=== PATIENT | male | born 1930 | race Caucasian/White ===

== ENCOUNTER 2016-04-18 14:03 | Inpatient (IN) ==
[2016-04-18] MEDS ORDERED: 0.9 % Sodium Chloride 1,000 ML IVC SCH ×2 (14:45→16:48)
[2016-04-18] MEDS ORDERED: Naloxone 0.4 MG/ML INJ IVP PRN (16:48)
--- NOTE | 2016-04-18 17:46 | Internal Med History&Physical ---
Date of Encounter: 04/18/16 Time of Encounter: 17:10 Assessment and Plan (1) Ileus Current visit: Yes Status: Acute He will be given IV fluids and clear liquids. Repeat assessment will be done tomorrow. (2) CKD (chronic kidney disease), stage IV Current visit: No Status: Acute Suspect acute worsening with underlying stage III disease. We will give IV fluids and recheck labs in a.m. (3) Paroxysmal a-fib Current visit: No Status: Chronic Continue Coumadin and monitor pro time (4) Hypertension Current visit: No Status: Chronic We will hold blood pressure medicine since he is borderline hypotensive Qualifiers: Hypertension type: essential hypertension Qualified Code(s): I10 - Essential (primary) hypertension (5) Vitamin D deficiency Current visit: Yes Status: Acute Vitamin D level was 15 on 03/22/2016. We will heart vitamin D and calcium supplement when ileus has improved. Internal Medicine - H&P: HPI Chief complaint: Vomiting and diarrhea, weakness Admitted From: Home Plans for Post Hospital Care: Home History of present illness: Mr. Boggs is a 85 year old male who was directed by his primary care provider Dr. Tigre Wolf to come to emergency room after labs and x-rays done earlier in the day showed significant abnormalities present. He was evaluated in ER with findings of acute on chronic renal failure, metabolic acidosis, and possible ileus. He was admitted to [facility] floor for ongoing care needs. He states he has had nausea vomiting diarrhea for the past week with 1-2 episodes of vomiting and diarrhea daily. He denies melena hematochezia or hematemesis. 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 He denies disorders of his liver or exocrine pancreas. He has had cholecystectomy in 2010. He has GERD. Past Med Surg Social Fam HX - Past Medical History Medical history: atrial fibrillation, COPD, coronary artery disease, diabetes, GERD, hypertension, myocardial infarction, renal disease Psychiatric history: no psych history - Past Surgical History Surgical History: appendectomy, cholecystectomy, coronary bypass (CABG), herniorrhaphy, other (volvulus reduction and pexy 10/2015), pacemaker - Social History Smoking Status: Former smoker Smokeless Tobacco Status: No Alcohol use: none Drug use: none - Family History Father Living Status: Hx Family Cardiac Disorders: Yes (unspecified) Daughter Living Status: Still Living Hx Family Cardiac Disorders: Yes (hypertension) Hx Family GI Disorders: Yes (IBS, Celiac disease, gallbladder) Mother Adopted: No Living Status: Hx Family Cardiac Disorders: Yes Hx Family Neurologic Disorders: Yes (Alzheimer) Internal Medicine - H&P: Meds Albuterol Sulfate [Albuterol Inhaler] 2 puff IH Q6HR PRN 01/20/15 [History] Aspirin [Adult Low Dose Aspirin EC] 81 mg PO DAILY 01/20/15 [History] Magnesium Oxide [Mgo] 400 mg PO BID 01/20/15 [History] Tamsulosin [Flomax] 0.4 mg PO DAILY 01/20/15 [History] Warfarin [Coumadin] 4 mg PO MOWEFRSA 01/20/15 [History] Budesonide/Formoterol 160/4.5 [Symbicort 160/4.5] 2 puff IH BIDR 06/13/15 [ History] Calcitriol 0.25 mcg PO DAILY 06/13/15 [History] Sodium Bicarbonate 650 mg PO BID 06/13/15 [History] Vit A/C/E AC/Znox/Cupric Oxide [Eye Vitamin-Minerals Tablet] 1 tab PO BID [History] Carboxymethylcellulose Sodium [Refresh Tears] 1 drop BOTH EYES QID 11/13/15 [ History] Fluticasone Propionate Nasal [Flonase] 50 mcg NS DAILY 11/13/15 [History] Losartan [Cozaar] 25 mg PO DAILY 11/13/15 [History] Docusate [Colace] 100 mg PO BID PRN #30 capsule 11/17/15 [Rx] Omeprazole [PriLOSEC] 40 mg PO DAILY PRN #30 capsule. 11/17/15 [Rx] Furosemide [Lasix] 20 mg PO DAILY 03/07/16 [History] Warfarin [Coumadin] 2 mg PO SUTUTH 03/07/16 [History] Allergies cephalexin [From Keflex] Allergy (Verified 11/12/15 12:36) Vomiting All Systems PM: A 10-system review of systems was performed and is negative for pertinent findings except as documented above in the HPI. Review of systems: Gen.: He states his weight has been stable past few months until the last week when he has lost several pounds due to the vomiting and diarrhea. Cardiovascular: He has history of hypertension and paroxysmal atrial fibrillation. He has had a pacemaker placed several years ago. 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 He denies heart failure DVT or pulmonary embolus. He has not had a stress test or heart catheter since the CABG surgery. Respiratory: He quit smoking approximately 50 years ago. He does use inhalers but is uncertain of the diagnosis. 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 He is being treated for BPH. He denies other kidney or bladder disorders. Neurologic: He denies large distribution strokes or seizures. Endocrine: He was diagnosed with DM 2 approximately 40 years ago but states it is diet-controlled. He denies thyroid disease or hyperlipidemia Hematology/oncology: He has history of anemia and has had skin cancer but denies internal malignancies or other blood disorders Psychiatric: He denies anxiety depression or other mental health issues [place] skeletal: He denies arthritis gout other bone joint or muscle disorders. He has had a shallow draining ulcer on his right leg for several weeks. - Constitutional Vitals: Temp Pulse Resp BP Pulse Ox 97.7 F 92 18 113/68 97 04/18/16 15:45 04/18/16 15:45 04/18/16 15:45 04/18/16 15:45 04/18/16 15:45 Exam: Gen.: He is a well-developed lean male who appears in no severe distress HEENT: Head is atraumatic and normocephalic. Eyes: EOMI. There is no scleral icterus. Mouth: Mucosa is moist. Neck: Supple and nontender. There is no thyromegaly or adenopathy noted. Heart: Regular without murmurs gallops or ectopics. Lungs: He has diminished breath sounds diffusely. No wheezes or crackles are heard. Abdomen: Soft and nontender. No masses or guarding are noted.. Extremities: He has a shallow ulcer approximate 3 cm diameter maximal dimension on the anterolateral lower leg. He has 1+ edema of the dorsum of the feet bilaterally. His feet are cool to touch. 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 Neurologic: Mental status: He is talkative and a good historian. Cranial nerves : Smile is symmetric. Forehead wrinkles bilaterally. Tongue protrudes midline. EOMI. Motor: There is no pronator drift. Cerebellar: Finger to nose intact bilaterally. Skin: Warm and dry. He has a shallow ulcers described above with mild surrounding erythema on the right leg.
[2016-04-18] MEDS: Artificial Tears SOLN 15 ML BOTTLE BOTH EYES SCH ×2 (17:50→23:29)
[2016-04-18] MEDS ORDERED: *HR* Warfarin 2 MG TABLET PO SCH (18:00)
[2016-04-18] MEDS: Budesonide/Formoterol 160/4.5 MDI IH SCH ×2 (22:10→22:17)
[2016-04-18] MEDS: Magnesium Oxide 400 MG TABLET PO SCH (23:29)
[2016-04-18] MEDS: (Vit A/C/E Ac/Znox/Cupric Oxide [Eye Vitamin-Minerals) PO SCH (23:30)
[2016-04-19 06:57] LABS: Basophils % 0.2 %; Eosinophils % 0.3 %; Hematocrit 31.1 % (37.5-50.1); Hemoglobin 10.4 g/dL (12.9-16.9); Immature Granulocytes % 0.3 % (0-4); Lymphocytes # 0.8 K/mcL (0.6-4.6); Lymphocytes % 14.3 %; Mean Corpuscular HGB Conc 33.4 g/dL (31.6-35.5); Mean Corpuscular Volume 92.6 fL (83.0-100.0); Monocytes # 0.3 K/mcL (0.0-1.3); Monocytes % 5.8 %; Neutrophils # 4.6 K/mcL (1.6-8.9); Platelet Count 194 K/mcL (140-400); Red Blood Count 3.36 M/mcL (4.19-5.50); Red Cell Distribution Width 17.2 % (11.5-14.5); Segmented Neutrophils % 79.1 %
[2016-04-19 07:02] LABS: INR 1.8; Prothrombin Time 19.9 Seconds (9.4-12.1)
[2016-04-19 07:15] LABS: Albumin 2.8 g/dL (3.5-5.0); Bilirubin,Total 0.9 mg/dL (0.2-1.2); Calcium 7.8 mg/dL (8.6-10.8); Globulin 2.7 g/dL (2.4-3.5); Magnesium 1.5 mg/dL (1.6-2.6); Potassium 4.5 mEq/L (3.5-4.5); Total Protein 5.5 g/dL (6.0-8.3)
[2016-04-19] MEDS ORDERED: Furosemide 40 MG TABLET PO SCH (09:00)
[2016-04-19] MEDS: Budesonide/Formoterol 160/4.5 MDI IH SCH ×2 (09:08→22:10)
[2016-04-19] MEDS: Magnesium Oxide 400 MG TABLET PO SCH ×2 (09:53→20:25)
[2016-04-19] MEDS: Aspirin Enteric Coated 81 MG Tablet PO SCH (09:54)
[2016-04-19] MEDS: Artificial Tears SOLN 15 ML BOTTLE BOTH EYES SCH ×4 (10:02→20:58)
[2016-04-19] MEDS: (Vit A/C/E Ac/Znox/Cupric Oxide [Eye Vitamin-Minerals) PO SCH ×2 (10:02→20:25)
[2016-04-19] MEDS: Fluticasone Propionate Nasal 50 MCG/SPRAY BOTTLE NS SCH (10:02)
--- NOTE | 2016-04-19 10:41 | Internal Med Progress Note ---
Date of Encounter: 04/19/16 Time of Encounter: 10:30 - Assessment and plan (1) Ileus Current Visit: Yes Status: Acute Assessment and plan: April 19. Continue IV fluids and clear liquids. (2) CKD (chronic kidney disease), stage IV Current Visit: No Status: Acute Assessment and plan: April 19. Continue IV fluids and recheck labs in a.m. (3) Paroxysmal a-fib Current Visit: No Status: Chronic Assessment and plan: April 19. Continue Coumadin and monitor pro time (4) Hypertension Current Visit: No Status: Chronic Assessment and plan: April 19. Observe off antihypertensive medication for now. Qualifiers: Hypertension type: essential hypertension Qualified Code(s): I10 - Essential (primary) hypertension (5) Vitamin D deficiency Current Visit: Yes Status: Acute Assessment and plan: April 19. Vitamin D level is pending. (6) Hypomagnesemia Current Visit: Yes Status: Acute Assessment and plan: April 19. Will continue magnesium oxide supplement. (7) Anemia Current Visit: No Status: Acute Assessment and plan: April 19. Anemia testing done 03/22/2016 showed no factor deficiency. We will monitor CBC. Qualifiers: Anemia type: unspecified type Qualified Code(s): D64.9 - Anemia, unspecified - Subjective Interval history: April 19. He has no new complaints. He states he has vomited once since yesterday afternoon. He has tolerated his clear liquid breakfast without feelings of nausea. He has no pain. - Constitutional Vitals: Temp Pulse Resp BP Pulse Ox 97.5 F L 81 18 143/67 99 04/19/16 07:21 04/19/16 07:21 04/19/16 09:12 04/19/16 07:21 04/19/16 09:12 Exam: He is resting comfortably in bed and appears in no acute distress. His abdomen is soft and nontender. Bowel sounds are present but slightly diminished. Heart is regular without murmurs gallops or ectopics. Lungs are clear anteriorly. Extremities show 1+ edema of the left leg and trace to 1+ edema of the right leg. Internal Medicine: Result - Labs CBC & Chem 7: 04/19/16 06:06 04/19/16 06:06 Labs: Short CBC 04/19/16 Range/Units 06:06 WBC 5.8 (4.3-11.1) K/mcL Hgb 10.4 L (12.9-16.9) g/dL Hct 31.1 L (37.5-50.1) % Plt Count 194 (140-400) K/mcL Neutrophils # 4.6 (1.6-8.9) K/mcL BMP 04/19/16 06:06 Sodium 147 H Potassium 4.5 Chloride 124 H Carbon Dioxide 9 L* BUN 83 H Creatinine 4.45 H Glucose 77 Calcium 7.8 L Liver Function 04/19/16 Range/Units 06:06 Total Bilirubin 0.9 (0.2-1.2) mg/dL AST 16 (5-34) Units/L ALT 13 (0-55) Units/L Alkaline Phosphatase 114 (38-126) Units/L Albumin 2.8 L (3.5-5.0) g/dL - ABG Interpretation ABG results: PT/INR, D-dimer PT 19.9 Seconds (9.4-12.1) H 04/19/16 06:06 Consult Discharge Plan - Plan Referrals: Tigre Wolf DO [Primary Care Provider] - 1 week
[2016-04-19] MEDS ORDERED: Ondansetron 4 MG/2 ML VIAL IVP PRN (10:54)
[2016-04-19] MEDS ORDERED: *HR* Warfarin 2.5 MG TABLET PO SCH (18:00)
[2016-04-19] MEDS ORDERED: *HR* Warfarin 2 MG TABLET PO SCH (18:00)
[2016-04-19] MEDS ORDERED: *HR* Warfarin 1 MG TABLET PO SCH (18:00)
[2016-04-19] MEDS ORDERED: Promethazine 12.5 MG in 0.9 % Sodium Chloride 50 ML IVPB PRN (19:27)
[2016-04-19] MEDS ORDERED: *HR* Promethazine 25 MG/ML VIAL IM PRN (20:14)
[2016-04-19] MEDS: *HR* Promethazine 25 MG/ML VIAL IVP PRN (20:40)
[2016-04-20] MEDS: *HR* Promethazine 25 MG/ML VIAL IVP PRN ×2 (02:28→20:35)
[2016-04-20 06:32] LABS: Basophils % 0.1 %; Hemoglobin 10.6 g/dL (12.9-16.9); Immature Granulocytes % 0.3 % (0-4); Lymphocytes # 0.7 K/mcL (0.6-4.6); Lymphocytes % 7.9 %; Mean Corpuscular HGB Conc 33.1 g/dL (31.6-35.5); Mean Corpuscular Hemoglobin 31.2 pg (28.0-33.3); Mean Corpuscular Volume 94.1 fL (83.0-100.0); Mean Platelet Volume 10.7 fL (9.4-12.4); Monocytes # 0.4 K/mcL (0.0-1.3); Monocytes % 4.5 %; Neutrophils # 7.8 K/mcL (1.6-8.9); Platelet Count 172 K/mcL (140-400); Red Cell Distribution Width 17.1 % (11.5-14.5); Segmented Neutrophils % 87.2 %
[2016-04-20 06:52] LABS: Calcium 7.5 mg/dL (8.6-10.8); Magnesium 1.7 mg/dL (1.6-2.6); Phosphorous 4.8 mg/dL (2.3-4.7); Potassium 4.3 mEq/L (3.5-4.5)
[2016-04-20] MEDS ORDERED: Furosemide 20 MG TABLET PO SCH (09:00)
[2016-04-20] MEDS ORDERED: (Vit A/C/E Ac/Znox/Cupric Oxide [Eye Vitamin-Minerals) PO SCH (09:00)
[2016-04-20] MEDS: Budesonide/Formoterol 160/4.5 MDI IH SCH (10:02)
[2016-04-20] MEDS: Artificial Tears SOLN 15 ML BOTTLE BOTH EYES SCH (13:58)
[2016-04-20] MEDS: Fluticasone Propionate Nasal 50 MCG/SPRAY BOTTLE NS SCH (13:59)
[2016-04-20] MEDS: Magnesium Oxide 400 MG TABLET PO SCH (13:59)
[2016-04-20] MEDS: Aspirin Enteric Coated 81 MG Tablet PO SCH (13:59)
--- NOTE | 2016-04-20 16:12 | Discharge Summary ---
Date of Encounter: 04/20/16 Time of Encounter: 15:45 - Discharge Diagnosis (1) Ileus Priority: Primary Status: Acute (2) CKD (chronic kidney disease), stage IV Priority: Secondary Status: Acute (3) Paroxysmal a-fib Priority: Secondary Status: Chronic (4) Hypertension Priority: Secondary Status: Chronic Qualifiers: Hypertension type: essential hypertension Qualified Code(s): I10 - Essential (primary) hypertension (5) Vitamin D deficiency Priority: Secondary Status: Acute (6) Hypomagnesemia Priority: Secondary Status: Acute (7) Anemia Priority: Secondary Status: Acute Qualifiers: Anemia type: unspecified type Qualified Code(s): D64.9 - Anemia, unspecified - Discharge Medications Home Medications: Albuterol Sulfate [Albuterol Inhaler] 2 puff IH Q6HR PRN 01/20/15 [History] Aspirin [Adult Low Dose Aspirin EC] 81 mg PO DAILY 01/20/15 [History] Magnesium Oxide [Mgo] 400 mg PO BID 01/20/15 [History] Tamsulosin [Flomax] 0.4 mg PO DAILY 01/20/15 [History] Warfarin [Coumadin] 4 mg PO MOWEFRSA 01/20/15 [History] Budesonide/Formoterol 160/4.5 [Symbicort 160/4.5] 2 puff IH BIDR 06/13/15 [ History] Calcitriol 0.25 mcg PO DAILY 06/13/15 [History] Sodium Bicarbonate 650 mg PO BID 06/13/15 [History] Vit A/C/E AC/Znox/Cupric Oxide [Eye Vitamin-Minerals Tablet] 1 tab PO BID [History] Carboxymethylcellulose Sodium [Refresh Tears] 1 drop BOTH EYES QID 11/13/15 [ History] Fluticasone Propionate Nasal [Flonase] 50 mcg NS DAILY 11/13/15 [History] Losartan [Cozaar] 25 mg PO DAILY 11/13/15 [History] Docusate [Colace] 100 mg PO BID PRN #30 capsule 11/17/15 [Rx] Omeprazole [PriLOSEC] 40 mg PO DAILY PRN #30 capsule. 11/17/15 [Rx] Furosemide [Lasix] 20 mg PO DAILY 03/07/16 [History] Warfarin [Coumadin] 2 mg PO SUTUTH 03/07/16 [History] Allergies/Adverse Reactions: Allergies cephalexin [From Keflex] Allergy (Verified 11/12/15 12:36) Vomiting Procedures/tests Complete & Pending: Procedures Performed prior 72 hours Category Date Time Status CT abd pelvis wo no iv no oral [CT] Routine Cat Scan 04/19/16 16:06 Completed Date of admission: 04/18/16 16:29 Primary care physician: Tigre Wolf, Consults: 04/18/16 18:49 Consult to Nutrition [CONS] Routine Comment: Consulting Provider: NUTRITION Reason for Dietary Consult: MST Score Consult to Bookkeeping Manager [CONS] Routine Reason for SW Consult: discharge planning 04/19/16 15:14 Consult to Occupational Therapy [CONS] Routine Comment: Evaluate, develop and implement POC Consult to Physical Therapy [CONS] Routine Comment: Evaluate, develop and implement POC - Patient Status Disposition: Transfer Short-Term Hosp - Discharge Instructions Forms: ED Satisfaction Letter Hospital course: Mr. Boggs is a 85 year old male who was directed by his primary care provider Dr. Tigre Wolf to come to emergency room after labs and x-rays done earlier in the day showed significant abnormalities present. He was evaluated in ER with findings of acute on chronic renal failure, metabolic acidosis, and possible ileus. [facility] floor for ongoing care needs. Initial orders were written by the emergency room physician. I saw him on April 18 and performed a history and physical. He was given IV fluids and clear liquid diet. Vomiting episodes gradually increased in frequency during the first 24 hours. The night of April 19 an NG tube was inserted and placed to low intermittent suction. Drainage appeared to be dark brown with possible blood flecks. Abdominal/pelvic CT was done to further evaluate. CT showed gastric distention and dilated loops of small bowel without obvious volvulus area. Because of the patient's previous volvulus requiring surgical intervention I felt it was best to have him be seen again by surgery service. He requested to go to [facility] but the request was denied by [facility] because he had most recently been to [facility]. I spoke with the family and they were agreed he go to [facility]. I spoke with [facility] and he was accepted for transfer the afternoon of April 20. - Time Spent with Patient Total time spent providing and/or coordinating discharge services: - Constitutional Vitals: Temp Pulse Resp BP Pulse Ox 98.2 F 104 18 118/70 98 04/20/16 15:20 04/20/16 15:20 04/20/16 15:20 04/20/16 15:20 04/20/16 15:20
[2016-04-20 18:49] VITALS: BP 109/73
== END 2016-04-20 22:02 | disposition short-term general hospital (02) | DRG 389 ==
LOC: INPPIK 14:03 → EMEROOPIK 14:03 → INPPIK 15:38
PROVIDERS: ADMIT Internal Medicine; ATTEND Internal Medicine

== ENCOUNTER 2016-09-14 07:26 | Inpatient (IN) ==
[2016-09-14] MEDS ORDERED: Ipratropium/Albuterol Neb 3 ML IH ONE (07:34)
[2016-09-14] MEDS ORDERED: Levofloxacin 750 MG/150 ML 750 MG/150 ML BAG IVPB ONE (07:34)
[2016-09-14] MEDS ORDERED: methylPREDNISolone 125 MG/2 ML VIAL IVP ONE (07:34)
--- NOTE | 2016-09-14 07:43 | Emergency Department Note ---
Disposition Clinical Impression: Community acquired pneumonia, CKD (chronic kidney disease), stage IV, Hypoxia Leukopenia Qualifiers: Leukopenia type: unspecified Qualified Code(s): D72.819 - Decreased white blood cell count, unspecified Disposition: Admitted As Inpatient Condition: Fair Referrals: Tigre Wolf DO [Primary Care Provider] - Forms: ED Satisfaction Letter SOB HPI - General Chief Complaint: ED General Medical Stated Complaint: flu like sxs, cough Time Seen by Provider: 09/14/16 07:30 Source: patient, EMS Mode of arrival: EMS Limitations: no limitations Nursing Notes Reviewed: Yes Vital Signs Reviewed: Yes - History of Present Illness Patient presents to the emergency department for evaluation of cough wheezing and shortness of breath. He states that the symptoms been present for the past 3 days. He denies fever. He states he has had a cough productive of clear sputum. He has also had several episodes of vomiting though by his description this appears to be posttussive in etiology. States he has had some minimal loose stool. He denies chest pain. He denies hemoptysis. He states he has chronic lower extremity edema that today he has some increased edema from his baseline. He denies abdominal pain. He denies recent antibiotic use or steroid use. Pt Subjective Complaint: shortness of breath, cough Onset (ago): day(s) (3) Severity: moderate, severe Consistency/Duration: gradually worsening Improves with: nothing Worsens with: exertion, coughing Known history of: COPD, congestive heart failure Associated symptoms: Reports: cough, wheezing, sputum production, nausea/ vomiting. Denies: chest pain, fever, orthopnea, lower extremity pain, polyuria , polydipsia, parasthesias, palpitations, hemoptysis, diaphoresis, syncope, abdominal pain, rash Cough Description: Voluntary, Productive, Hacking Cough Frequency: Intermittent Sputum production: Yes Sputum Amount: Small Sputum Color: Clear - Related Data Home oxygen amount: none Home Medications Medication Instructions Recorded Confirmed Aspirin [Adult Low Dose Aspirin EC] 81 mg PO DAILY 01/20/15 09/14/16 Magnesium Oxide [Mgo] 400 mg PO BID 01/20/15 09/14/16 Tamsulosin [Flomax] 0.4 mg PO DAILY 01/20/15 09/14/16 Warfarin [Coumadin] 4 mg PO DAILY 01/20/15 09/14/16 Budesonide/Formoterol 160/4.5 2 puff IH BIDR 06/13/15 09/14/16 [Symbicort 160/4.5] Calcitriol 0.25 mcg PO DAILY 06/13/15 09/14/16 Sodium Bicarbonate 650 mg PO BID 06/13/15 09/14/16 Vit A/C/E AC/Znox/Cupric Oxide 1 tab PO BID 06/13/15 09/14/16 [Eye Vitamin-Minerals Tablet] Carboxymethylcellulose Sodium 1 drop BOTH EYES QID 11/13/15 09/14/16 [Refresh Tears] Fluticasone Propionate Nasal 50 mcg NS DAILY 11/13/15 09/14/16 [Flonase] Furosemide [Lasix] 20 mg PO DAILY 03/07/16 09/14/16 Warfarin [Coumadin] 6 mg PO TUSA 03/07/16 09/14/16 Ammonium Lactate 140 gm TP BID 09/14/16 09/14/16 Calcium Carbonate/Vitamin D3 1 each PO BID 09/14/16 09/14/16 [Calcium 600 + Vit D Tablet] Ergocalciferol (VITAMIN D2) 50,000 unit PO QWEEK 09/14/16 09/14/16 [Drisdol (50,000 Unit)] Ondansetron ODT [Zofran ODT] 4 mg SL Q8HR 09/14/16 09/14/16 Quetiapine Fumarate [SEROquel] 25 mg PO HS 09/14/16 09/14/16 Previous Rx's Medication Instructions Recorded Omeprazole [PriLOSEC] 40 mg PO DAILY PRN #30 capsule. 11/17/15 Allergies Allergy/AdvReac Type Severity Reaction Status Date / Time cephalexin [From Keflex] Allergy Vomiting Verified 11/12/15 12:36 promethazine [From Phenergan] AdvReac See Verified 09/14/16 07:29 Comments Constitutional: Denies: fever Eyes: Denies: eye discharge, vision change ENT ED: Reports: congestion. Denies: throat pain, dysphagia Cardiovascular: Reports: dyspnea on exertion, edema. Denies: chest pain, palpitations, orthopnea, syncope, paroxysmal nocturnal dyspnea Respiratory: Reports: cough, dyspnea, wheezes, sputum production. Denies: hemoptysis Gastrointestinal: Reports: nausea, vomiting, diarrhea. Denies: abdominal pain Genitourinary: Denies: urgency, dysuria Musculoskeletal: Denies: back pain, neck pain Integumentary: Denies: rash Neurological: Denies: headache, weakness, numbness, paresthesias Endocrine: Denies: fatigue Past Medical History - Past Medical History Medical history: Reports: atrial fibrillation, COPD, coronary artery disease, diabetes, GERD, hypertension, myocardial infarction, renal disease (Chronic renal failure) Surgical history: Reports: appendectomy, cholecystectomy, coronary bypass (CABG) , herniorrhaphy, other (volvulus reduction and pexy 10/2015), pacemaker Psychiatric history: Reports: no psych history - Social History Smoking Status: Former smoker Smokeless Tobacco Status: No Alcohol use: Reports: none Drug use: Reports: none Physical Exam - General Limitations: no limitations General appearance: alert - Head Head exam: atraumatic, normocephalic - Eye Eye exam: Present: normal appearance. Absent: scleral icterus, conjunctival injection - ENT ENT exam: normal oropharynx, mucous membranes moist, TM's normal bilaterally - Neck Neck exam: Present: normal inspection. Absent: meningismus - Respiratory Respiratory exam: Present: wheezes, prolonged expiratory phase. Absent: respiratory distress, accessory muscle use - Cardiovascular Cardiovascular exam: Present: regular rate, normal rhythm - Abdominal Exam Abdominal exam: Present: soft, Non-Tender, normal bowel sounds. Absent: mass, bruit, pulsatile mass - Extremities Exam Extremities exam: Present: normal capillary refill, pedal edema (No asymmetry or erythema). Absent: tenderness, calf tenderness - Expanded Lower Extremity Exam Neurovascular/Tendon exam: Present: normal capillary refill. Absent: pulse deficit - Neurological Exam Neurological exam: Present: alert, oriented X3 - Psychiatric Psychiatric exam: Present: normal affect, normal mood - Skin Skin exam: Present: warm, dry, intact, normal color. Absent: rash Course Course Narrative: 0800: Care turned over by Dr. Malik. Chart has been reviewed. We do have 2 transmitted EKGs from EMS. These both demonstrated a circular paced rhythm with a rate of 62 and 63. There are no acute ST or T-wave changes to indicate ischemia or infarction. This is on my interpretation. EKGs were performed at 7 :11 AM and 7:12 AM. The patient is resting comfortably with a heart rate of 107 , saturating at 96% on 2 L nasal cannula with a blood pressure 109/57. His respiratory rate is 16. All lab and imaging is pending at time of my arrival. 0940: After return of laboratory evaluation, care has been discussed with the patient and family. Patient states that he has known severe kidney disease but has never been on dialysis. He states he has understood that it may become an eventuality. His current creatinine and kidney function is at baseline in comparison to his previous laboratory. He will need continued inpatient care and a page has been placed to Dr. Ennis to coordinate inpatient care at this facility. Vital Signs Temperature 99.3 F 09/14/16 07:30 Pulse Rate 72 09/14/16 07:30 Respiratory Rate 28 09/14/16 07:30 Blood Pressure 118/61 09/14/16 07:30 O2 Sat by Pulse Oximetry 88 09/14/16 07:30 Temperature 99.3 F 09/14/16 07:30 Pulse Rate 97 09/14/16 10:00 Respiratory Rate 24 09/14/16 10:00 Blood Pressure 120/61 09/14/16 10:00 O2 Sat by Pulse Oximetry 100 09/14/16 10:00 Oxygen Delivery Oxygen Delivery Nasal Cannula Shortness of Breath/Dyspnea - Differential Diagnosis Likely: acute exacerbation of chronic obstructive airways disease, congestive heart failure, pneumonia, asthma with exacerbation - Medical Records Medical records reviewed: Yes I reviewed the patient's medical records. - Lab Data Lab results reviewed: Yes I reviewed the patient's lab results. Result diagrams: 09/14/16 08:10 09/14/16 08:10 Lab Results 09/14/16 09/14/16 09/14/16 Range/Units 07:34 08:10 08:10 WBC 1.2 L (4.3-11.1) K/mcL RBC 3.02 L (4.19-5.50) M/mcL Hgb 9.7 L (12.9-16.9) g/dL Hct 30.9 L (37.5-50.1) % MCV 102.3 H D (83.0-100.0) fL MCH 32.1 (28.0-33.3) pg MCHC 31.4 L (31.6-35.5) g/dL RDW 16.3 H (11.5-14.5) % Plt Count 163 (140-400) K/mcL MPV 10.1 (9.4-12.4) fL Immature Gran % 0.0 (0-4) % Seg Neutrophils % 75.2 % Lymphocytes % 22.3 % Monocytes % 1.7 % Eosinophils % 0.8 % Basophils % 0.0 % Neutrophils # 0.9 L (1.6-8.9) K/mcL Lymphocytes # 0.3 L (0.6-4.6) K/mcL Monocytes # 0.0 (0.0-1.3) K/mcL Eosinophils # 0.0 (0.0-0.6) K/mcL Basophils # 0.0 (0.0-0.2) K/mcL Platelet Estimate Normal (Normal) PT (9.4-12.1) Seconds INR APTT (26.0-36.0) Seconds ABG pH 7.33 (7.32-7.45) pH Units ABG pCO2 29 L (35-45) mmHg ABG pO2 148 H (85-104) mmHg ABG HCO3 15.0 L (21-27) mEQ/L ABG Total CO2 15.9 L (20-26) mEq/L ABG O2 Saturation 99 H (95-98) % ABG Base Excess -10.9 L (-2.0 to 3.0) mEq/L VBG Lactic Acid (0.5-2.2) mmol/L Liter Flow 8 L/MIN Blood Gas Modality neb.mask Inspired O2 45 % Sodium 146 H (136-145) mEq/L Potassium 4.5 (3.5-4.5) mEq/L Chloride 122 H (98-109) mEq/L Carbon Dioxide 11 L (19-29) mEq/L BUN 60 H (8-26) mg/dL Creatinine 3.22 H (0.72-1.25) mg/dL Est GFR ( Amer) 22 L (> 60) Est GFR (Non-Af Amer) 19 L (> 60) BUN/Creatinine Ratio 19 (6-26) Glucose 123 H (70-99) mg/dL Calculated Osmolality 320 H (280-300) Calcium 7.4 L (8.6-10.8) mg/dL Total Bilirubin 0.5 (0.2-1.2) mg/dL Direct Bilirubin 0.2 (0.0-0.5) mg/dL Indirect Bilirubin 0.3 (0.0-1.2) mg/dL AST 20 (5-34) Units/L ALT 17 (0-55) Units/L Alkaline Phosphatase 135 H (38-126) Units/L Creatine Kinase 72 (30-200) Units/L Troponin I (0-0.03) ng/mL B-Natriuretic Peptide (0-100) pg/mL Serum Total Protein 4.9 L (6.0-8.3) g/dL Albumin 2.4 L (3.5-5.0) g/dL Globulin 2.5 (2.4-3.5) g/dL Albumin/Globulin Ratio 1.0 L (1.1-2.2) 09/14/16 09/14/16 09/14/16 Range/Units 08:10 08:10 08:10 WBC (4.3-11.1) K/mcL RBC (4.19-5.50) M/mcL Hgb (12.9-16.9) g/dL Hct (37.5-50.1) % MCV (83.0-100.0) fL MCH (28.0-33.3) pg MCHC (31.6-35.5) g/dL RDW (11.5-14.5) % Plt Count (140-400) K/mcL MPV (9.4-12.4) fL Immature Gran % (0-4) % Seg Neutrophils % % Lymphocytes % % Monocytes % % Eosinophils % % Basophils % % Neutrophils # (1.6-8.9) K/mcL Lymphocytes # (0.6-4.6) K/mcL Monocytes # (0.0-1.3) K/mcL Eosinophils # (0.0-0.6) K/mcL Basophils # (0.0-0.2) K/mcL Platelet Estimate (Normal) PT (9.4-12.1) Seconds INR APTT (26.0-36.0) Seconds ABG pH (7.32-7.45) pH Units ABG pCO2 (35-45) mmHg ABG pO2 (85-104) mmHg ABG HCO3 (21-27) mEQ/L ABG Total CO2 (20-26) mEq/L ABG O2 Saturation (95-98) % ABG Base Excess (-2.0 to 3.0) mEq/L VBG Lactic Acid 2.8 H (0.5-2.2) mmol/L Liter Flow L/MIN Blood Gas Modality Inspired O2 % Sodium (136-145) mEq/L Potassium (3.5-4.5) mEq/L Chloride (98-109) mEq/L Carbon Dioxide (19-29) mEq/L BUN (8-26) mg/dL Creatinine (0.72-1.25) mg/dL Est GFR ( Amer) (> 60) Est GFR (Non-Af Amer) (> 60) BUN/Creatinine Ratio (6-26) Glucose (70-99) mg/dL Calculated Osmolality (280-300) Calcium (8.6-10.8) mg/dL Total Bilirubin (0.2-1.2) mg/dL Direct Bilirubin (0.0-0.5) mg/dL Indirect Bilirubin (0.0-1.2) mg/dL AST (5-34) Units/L ALT (0-55) Units/L Alkaline Phosphatase (38-126) Units/L Creatine Kinase (30-200) Units/L Troponin I 0.03 (0-0.03) ng/mL B-Natriuretic Peptide 499 H (0-100) pg/mL Serum Total Protein (6.0-8.3) g/dL Albumin (3.5-5.0) g/dL Globulin (2.4-3.5) g/dL Albumin/Globulin Ratio (1.1-2.2) 09/14/16 09/14/16 Range/Units 09:35 09:35 WBC (4.3-11.1) K/mcL RBC (4.19-5.50) M/mcL Hgb (12.9-16.9) g/dL Hct (37.5-50.1) % MCV (83.0-100.0) fL MCH (28.0-33.3) pg MCHC (31.6-35.5) g/dL RDW (11.5-14.5) % Plt Count (140-400) K/mcL MPV (9.4-12.4) fL Immature Gran % (0-4) % Seg Neutrophils % % Lymphocytes % % Monocytes % % Eosinophils % % Basophils % % Neutrophils # (1.6-8.9) K/mcL Lymphocytes # (0.6-4.6) K/mcL Monocytes # (0.0-1.3) K/mcL Eosinophils # (0.0-0.6) K/mcL Basophils # (0.0-0.2) K/mcL Platelet Estimate (Normal) PT 35.9 H (9.4-12.1) Seconds INR 3.2 APTT 34.3 (26.0-36.0) Seconds ABG pH (7.32-7.45) pH Units ABG pCO2 (35-45) mmHg ABG pO2 (85-104) mmHg ABG HCO3 (21-27) mEQ/L ABG Total CO2 (20-26) mEq/L ABG O2 Saturation (95-98) % ABG Base Excess (-2.0 to 3.0) mEq/L VBG Lactic Acid (0.5-2.2) mmol/L Liter Flow L/MIN Blood Gas Modality Inspired O2 % Sodium (136-145) mEq/L Potassium (3.5-4.5) mEq/L Chloride (98-109) mEq/L Carbon Dioxide (19-29) mEq/L BUN (8-26) mg/dL Creatinine (0.72-1.25) mg/dL Est GFR ( Amer) (> 60) Est GFR (Non-Af Amer) (> 60) BUN/Creatinine Ratio (6-26) Glucose (70-99) mg/dL Calculated Osmolality (280-300) Calcium (8.6-10.8) mg/dL Total Bilirubin (0.2-1.2) mg/dL Direct Bilirubin (0.0-0.5) mg/dL Indirect Bilirubin (0.0-1.2) mg/dL AST (5-34) Units/L ALT (0-55) Units/L Alkaline Phosphatase (38-126) Units/L Creatine Kinase (30-200) Units/L Troponin I (0-0.03) ng/mL B-Natriuretic Peptide (0-100) pg/mL Serum Total Protein (6.0-8.3) g/dL Albumin (3.5-5.0) g/dL Globulin (2.4-3.5) g/dL Albumin/Globulin Ratio (1.1-2.2) - Radiology Data Radiology results reviewed: Yes I reviewed the patient's radiology results. Single view Chest x-ray is performed. This shows some hyperexpansion consistent with COPD. Patient has patchy increased interstitial markings in the right base that is concerning for pneumonia. I do not see evidence for effusion, pneumothorax or cardiomegaly. I believe pulmonary edema to be less likely. This is on my interpretation. Impressions Chest X-Ray 09/14/16 07:34 IMPRESSION: Patchy bibasilar airspace disease. D/ / Daron Morgan MD / Daron Morgan MD Interpreting Provider: Daron Morgan MD - EKG Data EKG attestation: Yes I reviewed and interpreted this EKG. EKG shows normal: Reports: sinus rhythm (Paced rhythm with rate of 63.) Interpretation: Reports: no acute changes, other (Ventricularly paced rhythm, rate of 63, axis of 136, TX interval 190 and QT/QTc 460/467.) S.B.A.R. - S.B.A.R. Transition of Care: Care transferred to Dr. Hernandez pending laboratory and radiographic evaluation. Situation: Demographics Background: Presenting Complaint, Relevant PMH, Meds, & Allergies Assessment: Vital Signs, Exam Concerns S.B.A.R. Report Given to: Dr. David Gan.[email or web address] Repor Time: 07:00
[2016-09-14 08:14] LABS: ABG PH 7.33 pH Units (7.32-7.45)
[2016-09-14 08:15] LABS: ABG Base Excess -10.9 mEq/L (-2.0 to 3.0); ABG Oxygen Saturation 99 % (95-98); ABG PCO2 29 mmHg (35-45); ABG PO2 148 mmHg (85-104); ABG TCO2 15.9 mEq/L (20-26)
[2016-09-14 08:16] LABS: Blood Gas FiO2 45 %; Blood Gas Liter Flow 8 L/MIN
[2016-09-14 08:26] LABS: Eosinophils % 0.8 %; Hematocrit 30.9 % (37.5-50.1); Hemoglobin 9.7 g/dL (12.9-16.9); Lymphocytes # 0.3 K/mcL (0.6-4.6); Lymphocytes % 22.3 %; Mean Corpuscular HGB Conc 31.4 g/dL (31.6-35.5); Mean Corpuscular Hemoglobin 32.1 pg (28.0-33.3); Mean Corpuscular Volume 102.3 fL (83.0-100.0); Mean Platelet Volume 10.1 fL (9.4-12.4); Monocytes % 1.7 %; Neutrophils # 0.9 K/mcL (1.6-8.9); Platelet Count 163 K/mcL (140-400); Red Blood Count 3.02 M/mcL (4.19-5.50); Red Cell Distribution Width 16.3 % (11.5-14.5); Segmented Neutrophils % 75.2 %
[2016-09-14] MEDS ORDERED: Acetaminophen 325 MG TABLET PO ONE (08:49)
[2016-09-14 08:54] LABS: Platelet Estimate Normal (Normal)
[2016-09-14 09:19] LABS: Albumin 2.4 g/dL (3.5-5.0); Bilirubin,Direct 0.2 mg/dL (0.0-0.5); Bilirubin,Indirect 0.3 mg/dL (0.0-1.2); Bilirubin,Total 0.5 mg/dL (0.2-1.2); Calcium 7.4 mg/dL (8.6-10.8); Globulin 2.5 g/dL (2.4-3.5); Potassium 4.5 mEq/L (3.5-4.5); Total Protein 4.9 g/dL (6.0-8.3)
[2016-09-14 09:50] LABS: INR 3.2; Prothrombin Time 35.9 Seconds (9.4-12.1)
[2016-09-14] MEDS ORDERED: *HR* Warfarin 2 MG TABLET PO SCH (10:21)
[2016-09-14] MEDS ORDERED: Acetaminophen 325 MG TABLET PO PRN (10:21)
[2016-09-14] MEDS ORDERED: Naloxone 0.4 MG/ML INJ IVP PRN (10:21)
[2016-09-14] MEDS ORDERED: Albuterol 2.5 MG/3 ML NEBULIZER IH PRN (10:21)
[2016-09-14] MEDS ORDERED: Ondansetron 4 MG/2 ML VIAL IVP PRN (10:21)
[2016-09-14] MEDS ORDERED: MOM Conc 10 ML UD.LIQ PO PRN (10:21)
[2016-09-14] MEDS: 0.9 % Sodium Chloride 1,000 ML IVC SCH ×2 (10:49→20:33)
[2016-09-14] MEDS: Ipratropium/Albuterol Neb 3 ML IH SCH ×3 (10:55→22:08)
[2016-09-14] MEDS: Artificial Tears SOLN 15 ML BOTTLE BOTH EYES SCH ×3 (13:29→20:36)
[2016-09-14] MEDS ORDERED: Dextrose Gel 15 GM PO PRN ×2 (18:29)
[2016-09-14] MEDS ORDERED: D5% in Water 1,000 ML IVC PRN (18:29)
[2016-09-14] MEDS ORDERED: *HR* Dextrose 50 % in Water (Syg) 50 ML SYRINGE IVP PRN (18:29)
--- NOTE | 2016-09-14 18:40 | Internal Med History&Physical ---
Date of Encounter: 09/14/16 Time of Encounter: 18:30 Assessment and Plan (1) Community acquired pneumonia Current visit: Yes Status: Acute X-ray portable shows right lower lobe pneumonia, will continue Levaquin follow- up CBC with differential will admit him to [facility] floor because a combination of pneumonia plus leukopenia plus hypoxia posterior weakness. (2) Leukopenia Current visit: Yes Status: Acute His white count is 1.2 with follow-up CBC Qualifiers: Leukopenia type: unspecified Qualified Code(s): D72.819 - Decreased white blood cell count, unspecified (3) Hypoxia Current visit: Yes Status: Acute Continue oxygen supplementation is also on prednisone (4) Chronic atrial fibrillation Current visit: Yes Status: Chronic Follow-up daily PT/INRs, INR was 3.2 along working with dose adjustments (5) Bilateral lower extremity edema Current visit: Yes Status: Chronic We will give Lasix, if blood blisters a bigger and consider wraps, the feet elevated when not ambulating (6) COPD with exacerbation Current visit: Yes Status: Acute Hypoxia continue the prednisone. (7) General weakness Current visit: Yes Status: Acute Consult rehabilitation. (8) Macrocytic anemia Current visit: Yes Status: Chronic Obtain B12 and folate levels (9) DM2 (diabetes mellitus, type 2) Current visit: Yes Status: Acute Patient reports diet-controlled home with no sliding scale insulin and asked her twice year will follow-up a hemoglobin A1c Qualifiers: Diabetes mellitus complication status: with kidney complications Diabetes mellitus complication detail: with chronic kidney disease Diabetes mellitus residential insulin use: without residential use Chronic kidney disease stage: stage 4 (severe) Qualified Code(s): E11.22 - Type 2 diabetes mellitus with diabetic chronic kidney disease; N18.4 - Chronic kidney disease, stage 4 (severe ) Internal Medicine - H&P: HPI Chief complaint: Shortness of breath Admitted From: Home Plans for Post Hospital Care: Transfer Inp Rehab Fac History of present illness: Mr. Boggs is a 85 year old male risen to the emergency room with acute cough and shortness of breath couple hours this morning before he allowed his to call the squad. His legs and joints froze up and he can move them. Reports having some nausea vomiting and chills this morning. Denies any fever. He reports weakness and fatigue and coughing up some clear sputum. He was progressively getting short of breath. He denied a headache dizziness blood and urine or stool. He is hard of hearing. He is agitated today because he was not allowed to drive. He gave in detail his frustrations. Apparently had a mini stroke about [address] Wolf did not feel comfortable with him driving before he had further workup including MRI. I explained with a recent mini stroke that there is concern with him continue to drive because if he had a stroke while he is driving he could kill someone. His statement was that he had insurance. There is something he will have to continue working with Dr. Wolf on. He has a history of colonic polyps but he refuses to get a follow- up colonoscopy. His said he declined even doing a stool blood sample. He sees Dr. Mendoza for chronic kidney disease apparently his level for his on Lasix 20 mg twice a day. He has swelling in his ankles but they are unsure if she has congestive heart failure with his history of coronary artery disease. He like to go to rehabilitation [facility] after he is finished here with a goal of getting stronger drive again. He apparently has an arrhythmia and a pacemaker. Answers questions address his concerns. Past Med Surg Social Fam HX - Past Medical History Medical history: atrial fibrillation, CHF (Per ER documentation), COPD, coronary artery disease, diabetes, GERD, hypertension, myocardial infarction, renal disease (CKD4), other (Esophageal stricture, peripheral edema, colonic polyps,) Psychiatric history: no psych history - Past Surgical History Surgical History: appendectomy, cholecystectomy, coronary bypass (CABG) (3 vessels), herniorrhaphy, other (Large and small bowel surgery), pacemaker - Social History Smoking Status: Former smoker Smokeless Tobacco Status: No Alcohol use: none Drug use: other (One half to one cup of decaf coffee dailyBecause caffeine is a stimulant and makes one feel a boost of energy by tapping into ones reserve energy, it can lead to anxiety and panic attacks. When used routiely, it interferes with deep sleep, so the reserve energy isn't being replaced effectively which leads to tiredness, depression, higher risk of infection. I recommend patients gives up daily use.) Current living situation: Home Activity Level: Uses cane/walker - Family History Father Living Status: ([place]) Hx Family Cardiac Disorders: Yes (unspecified) Hx Family Respiratory Disorders: Yes (COPD) Hx Family Cancer: Yes (Prostate cancer) Daughter Living Status: Still Living Hx Family Cardiac Disorders: Yes (hypertension) Hx Family GI Disorders: Yes (IBS, Celiac disease, gallbladder) Mother Adopted: No Living Status: Hx Family Cardiac Disorders: Yes Hx Family Endocrine Disorder: Yes (Diabetes) Hx Family Neurologic Disorders: Yes (Alzheimer) Hx Family Psychosocial Disorders: Yes (Alzheimer's dementia) Internal Medicine - H&P: Meds Aspirin [Adult Low Dose Aspirin EC] 81 mg PO DAILY 01/20/15 [History] Magnesium Oxide [Mgo] 400 mg PO BID 01/20/15 [History] Tamsulosin [Flomax] 0.4 mg PO DAILY 01/20/15 [History] Warfarin [Coumadin] 4 mg PO DAILY 01/20/15 [History] Budesonide/Formoterol 160/4.5 [Symbicort 160/4.5] 2 puff IH BIDR 06/13/15 [ History] Calcitriol 0.25 mcg PO DAILY 06/13/15 [History] Sodium Bicarbonate 650 mg PO BID 06/13/15 [History] Vit A/C/E AC/Znox/Cupric Oxide [Eye Vitamin-Minerals Tablet] 1 tab PO BID [History] Carboxymethylcellulose Sodium [Refresh Tears] 1 drop BOTH EYES QID 11/13/15 [ History] Fluticasone Propionate Nasal [Flonase] 50 mcg NS DAILY 11/13/15 [History] Omeprazole [PriLOSEC] 40 mg PO DAILY PRN #30 capsule. 11/17/15 [Rx] Furosemide [Lasix] 20 mg PO DAILY 03/07/16 [History] Warfarin [Coumadin] 6 mg PO TUSA 03/07/16 [History] Ammonium Lactate 140 gm TP BID 09/14/16 [History] Calcium Carbonate/Vitamin D3 [Calcium 600 + Vit D Tablet] 1 each PO BID [History] Ergocalciferol (VITAMIN D2) [Drisdol (50,000 Unit)] 50,000 unit PO QWEEK [History] Ondansetron ODT [Zofran ODT] 4 mg SL Q8HR 09/14/16 [History] Quetiapine Fumarate [SEROquel] 25 mg PO HS 09/14/16 [History] Allergies cephalexin [From Keflex] Allergy (Verified 11/12/15 12:36) Vomiting promethazine [From Phenergan] Adverse Reaction (Verified 09/14/16 07:29) See Comments Body jerking All Systems PM: A 10-system review of systems was performed and is negative for pertinent findings except as documented above in the HPI. - Constitutional Vitals: Temp Pulse Resp BP Pulse Ox 99.0 F 78 16 134/73 100 09/14/16 15:45 09/14/16 15:45 09/14/16 16:28 09/14/16 15:45 09/14/16 16:28 - Head Head exam: Present: atraumatic, normocephalic - Eye Eye exam: Present: PERRL, conjuntiva pink, sclera anicteric Pupils: Present: PERRL - Neck Neck exam general surgery: Present: supple, trachea midline. Absent: lymphadenopathy - Respiratory Respiratory exam: Present: CTAB. Absent: accessory muscle use, rales, rhonchi, wheezes - Cardiovascular Cardiovascular exam: Present: irregular rhythm, +S1, +S2. Absent: diastolic murmur, gallop, rubs, systolic murmur - GI/Abdominal GI/Abdominal exam: Present: normal bowel sounds, soft, no peritoneal signs. Absent: distended, tenderness - Extremities Exam Extremities exam: Present: pedal edema, warm. Absent: calf tenderness, cyanotic - Neurological Exam Neurological exam: Present: CN II-XII intact (Except hard of hearing), motor sensory deficit, oriented X3. Absent: facial droop, speech deficit Additional comments: Muscles about 4-4+ out 5 bilaterally - Skin Skin exam: Present: dry, intact (Small water blisters) Internal Med - H&P Results - Labs CBC & Chem 7: 09/14/16 08:10 09/14/16 08:10
[2016-09-14] MEDS: predniSONE 20 MG TABLET PO SCH (18:48)
[2016-09-14] MEDS: Furosemide 20 MG TABLET PO SCH (20:29)
[2016-09-14] MEDS: Magnesium Oxide 400 MG TABLET PO SCH (20:29)
[2016-09-14] MEDS: Insulin LISPRO 300 UNITS/3 ML VIAL SQ SCH (20:32)
[2016-09-14] MEDS: Ammonium Lactate 30 APPL/225 GM BOTTLE TP SCH (20:34)
[2016-09-15] MEDS: Ipratropium/Albuterol Neb 3 ML IH SCH ×4 (04:13→21:31)
[2016-09-15 05:10] LABS: INR 4.3
[2016-09-15 05:13] LABS: Prothrombin Time 48.1 Seconds (9.4-12.1)
[2016-09-15 05:19] LABS: Calcium 7.3 mg/dL (8.6-10.8); Potassium 3.7 mEq/L (3.5-4.5)
[2016-09-15 05:35] LABS: Hematocrit 22.5 % (37.5-50.1); Mean Corpuscular HGB Conc 32.9 g/dL (31.6-35.5); Mean Corpuscular Hemoglobin 31.8 pg (28.0-33.3); Mean Corpuscular Volume 96.6 fL (83.0-100.0); Mean Platelet Volume 10.9 fL (9.4-12.4); Red Blood Count 2.33 M/mcL (4.19-5.50); Red Cell Distribution Width 15.7 % (11.5-14.5)
[2016-09-15 05:38] LABS: Hemoglobin 7.4 g/dL (12.9-16.9); Platelet Count 89 K/mcL (140-400)
[2016-09-15] MEDS: 0.9 % Sodium Chloride 1,000 ML IVC SCH (05:46)
[2016-09-15 05:59] LABS: Anisocytosis 1+ (Not Present); Dohle Bodies Present (Not Present); Lymphocytes # 0.1 K/mcL (0.6-4.6); Neutrophils # 6.1 K/mcL (1.6-8.9); Platelet Estimate Decreased (Normal)
[2016-09-15 06:00] LABS: Toxic Granulation Present (Not Present); Toxic Vacuolation Present (Not Present)
[2016-09-15 06:01] LABS: Poikilocytosis 1+ (Not Present)
[2016-09-15] MEDS: Insulin LISPRO 300 UNITS/3 ML VIAL SQ SCH ×4 (08:03→21:55)
[2016-09-15] MEDS: Magnesium Oxide 400 MG TABLET PO SCH ×2 (08:07→21:53)
[2016-09-15] MEDS: Furosemide 20 MG TABLET PO SCH ×2 (08:07→16:49)
[2016-09-15] MEDS: Aspirin Enteric Coated 81 MG Tablet PO SCH (08:07)
[2016-09-15] MEDS: predniSONE 20 MG TABLET PO SCH ×2 (08:08→16:48)
[2016-09-15] MEDS: Artificial Tears SOLN 15 ML BOTTLE BOTH EYES SCH ×4 (08:09→21:54)
[2016-09-15] MEDS ORDERED: Furosemide 40 MG TABLET PO SCH (09:00)
--- NOTE | 2016-09-15 09:42 | Electrocardiograph Report ---
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
--- NOTE | 2016-09-15 12:48 | Internal Med Progress Note ---
Date of Encounter: 09/15/16 Time of Encounter: 12:45 - Assessment and plan (1) Community acquired pneumonia Current Visit: Yes Status: Acute Assessment and plan: September 15 improving white count went up to normal continue IV Levaquin and follow- up CBC (2) Leukopenia Current Visit: Yes Status: Acute Assessment and plan: September 15 back to normal Qualifiers: Leukopenia type: unspecified Qualified Code(s): D72.819 - Decreased white blood cell count, unspecified (3) Hypoxia Current Visit: Yes Status: Acute Assessment and plan: September 15 stable and supplemental oxygen (4) Chronic atrial fibrillation Current Visit: Yes Status: Chronic Assessment and plan: September 15 INR went to 4.3, pharmacy is helping dose. (5) Bilateral lower extremity edema Current Visit: Yes Status: Chronic Assessment and plan: September 15 Hep-Lock IV fluids continue Lasix (6) COPD with exacerbation Current Visit: Yes Status: Acute (7) General weakness Current Visit: Yes Status: Acute Assessment and plan: September 15 he reports feeling well stronger PT OT consults along with health social work professor discharge planning (8) Macrocytic anemia Current Visit: Yes Status: Chronic Assessment and plan: September 15 follow-up on the folate and B12 level once available (9) DM2 (diabetes mellitus, type 2) Current Visit: Yes Status: Acute Assessment and plan: September 15 continue sliding scale insulin Qualifiers: Diabetes mellitus complication status: with kidney complications Diabetes mellitus complication detail: with chronic kidney disease 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 He has COPD exacerbation given Solu-Medrol and continued on prednisone. Diabetes fairly normally is diet -controlled at give him sliding scale insulin. His BNP went up to 1546 IV fluids which means he probably has congestive heart failure. His hemoglobin dropped to 7.4 probably dilutional component. Overall he feels little better today is urinating more. He feels a little stronger. Eyes A chest pain the usual shortness breath questions answered and concerns addressed the usual pneumonia stay is 3-4 days then discharged to rehabilitation social service will give him his options - Constitutional Vitals: Temp Pulse Resp BP Pulse Ox 97.7 F 100 18 112/68 100 09/15/16 11:11 09/15/16 11:11 09/15/16 11:11 09/15/16 11:11 09/15/16 11:11 Exam: General: Alert and oriented, no acute distress Lungs: Clear to auscultation bilaterally without wheezing or crackles Heart: Regular rate and rythms without murmer or rubs Abdomen: Soft, nontender, Extremities: 1-2+ edema, no redness, small water blisters Internal Medicine: Result - Labs CBC & Chem 7: 09/15/16 04:30 09/15/16 04:30 Labs: Short CBC 09/15/16 Range/Units 04:30 WBC 6.2 D (4.3-11.1) K/mcL Hgb 7.4 L D (12.9-16.9) g/dL Hct 22.5 L (37.5-50.1) % Plt Count 89 L (140-400) K/mcL Neutrophils # 6.1 (1.6-8.9) K/mcL BMP 09/15/16 04:30 Sodium 142 Potassium 3.7 Chloride 118 H Carbon Dioxide 13 L BUN 65 H Creatinine 2.91 H Glucose 264 H Calcium 7.3 L - ABG Interpretation ABG results: ABG ABG pH 7.33 pH Units (7.32-7.45) 09/14/16 07:34 ABG pCO2 29 mmHg (35-45) L 09/14/16 07:34 ABG pO2 148 mmHg (85-104) H 09/14/16 07:34 ABG O2 Saturation 99 % (95-98) H 09/14/16 07:34 PT/INR, D-dimer PT 48.1 Seconds (9.4-12.1) H* 09/15/16 04:30 - VTE Reasons for not Prescribing Prophylaxis: Not indicated-Anticoagulated or INR therapeutic Consult Discharge Plan - Plan Referrals: Tigre Wolf DO [Primary Care Provider] - 1 week
[2016-09-15] MEDS: Ammonium Lactate 30 APPL/225 GM BOTTLE TP SCH ×2 (16:53→22:03)
[2016-09-15 17:09] LABS: Hemoglobin A1C 4.7 %
[2016-09-15 17:47] LABS: Folate 12.5 ng/mL (7.0-31.4)
[2016-09-16] MEDS: Ipratropium/Albuterol Neb 3 ML IH SCH ×3 (04:34→18:43)
[2016-09-16 05:02] LABS: Hematocrit 23.9 % (37.5-50.1); Hemoglobin 7.8 g/dL (12.9-16.9); Mean Corpuscular HGB Conc 32.6 g/dL (31.6-35.5); Red Blood Count 2.44 M/mcL (4.19-5.50); Red Cell Distribution Width 15.9 % (11.5-14.5)
[2016-09-16 05:11] LABS: INR 3.6; Prothrombin Time 40.2 Seconds (9.4-12.1)
[2016-09-16 05:21] LABS: Calcium 7.5 mg/dL (8.6-10.8); Potassium 3.5 mEq/L (3.5-4.5)
[2016-09-16 05:28] LABS: Platelet Count 94 K/mcL (140-400)
[2016-09-16 06:11] LABS: Anisocytosis 1+ (Not Present); Dohle Bodies Present (Not Present); Lymphocytes # 0.3 K/mcL (0.6-4.6); Monocytes # 0.1 K/mcL (0.0-1.3); Neutrophils # 6.2 K/mcL (1.6-8.9); Platelet Estimate Decreased (Normal)
[2016-09-16 06:12] LABS: Toxic Granulation Present (Not Present)
[2016-09-16] MEDS: Artificial Tears SOLN 15 ML BOTTLE BOTH EYES SCH ×4 (08:52→20:57)
[2016-09-16] MEDS: Ammonium Lactate 30 APPL/225 GM BOTTLE TP SCH ×2 (08:52→21:00)
[2016-09-16] MEDS: Magnesium Oxide 400 MG TABLET PO SCH ×2 (08:53→20:58)
[2016-09-16] MEDS: Furosemide 40 MG TABLET PO SCH (08:54)
[2016-09-16] MEDS: Aspirin Enteric Coated 81 MG Tablet PO SCH (08:54)
[2016-09-16] MEDS: predniSONE 20 MG TABLET PO SCH ×2 (08:55→17:28)
[2016-09-16] MEDS: Insulin LISPRO 300 UNITS/3 ML VIAL SQ SCH ×4 (08:57→21:01)
[2016-09-16] MEDS ORDERED: Levofloxacin 250 MG/50 ML 250 MG/50 ML BAG IVPB SCH (09:00)
--- NOTE | 2016-09-16 16:17 | Internal Med Progress Note ---
Date of Encounter: 09/16/16 Time of Encounter: 16:05 - Assessment and plan (1) Community acquired pneumonia Current Visit: Yes Status: Acute Assessment and plan: September 15 improving white count went up to normal continue IV Levaquin and follow- up CBC September 16. Continue IV Levaquin. Will add lactobacillus. Anticipate discharge to [place] tomorrow (2) Chronic atrial fibrillation Current Visit: Yes Status: Chronic Assessment and plan: September 15 INR went to 4.3, pharmacy is helping dose. September 16. Continue to dose Coumadin based on INR. (3) Macrocytic anemia Current Visit: Yes Status: Chronic Assessment and plan: September 15 follow-up on the folate and B12 level once available September 16. Folate and TSH were normal. B12 was low at 191. We will give B12 injection today and start oral supplement. - Subjective Interval history: September 16. He has no new complaints and feels better overall. He states his dyspnea has lessened. He is anticipating discharge to [facility] tomorrow - Constitutional Vitals: Temp Pulse Resp BP Pulse Ox 97.8 F 102 17 123/72 98 09/16/16 14:23 09/16/16 14:23 09/16/16 14:23 09/16/16 14:23 09/16/16 14:23 Exam: He is sitting on the side of bed resting comfortably. His affect is bright and cheerful. He was not dyspneic or tachypnea. I reviewed his medications and lab results. Internal Medicine: Result - Labs CBC & Chem 7: 09/16/16 04:10 09/16/16 04:10 Labs: Short CBC 09/16/16 Range/Units 04:10 WBC 6.5 (4.3-11.1) K/mcL Hgb 7.8 L (12.9-16.9) g/dL Hct 23.9 L (37.5-50.1) % Plt Count 94 L (140-400) K/mcL Neutrophils # 6.2 (1.6-8.9) K/mcL BMP 09/16/16 04:10 Sodium 144 Potassium 3.5 Chloride 120 H Carbon Dioxide 11 L BUN 64 H Creatinine 3.02 H Glucose 237 H Calcium 7.5 L - ABG Interpretation ABG results: ABG ABG pH 7.33 pH Units (7.32-7.45) 09/14/16 07:34 ABG pCO2 29 mmHg (35-45) L 09/14/16 07:34 ABG pO2 148 mmHg (85-104) H 09/14/16 07:34 ABG O2 Saturation 99 % (95-98) H 09/14/16 07:34 PT/INR, D-dimer PT 40.2 Seconds (9.4-12.1) H 09/16/16 04:10 - VTE Reasons for not Prescribing Prophylaxis: Not indicated-Anticoagulated or INR therapeutic Consult Discharge Plan - Plan Referrals: Tigre Wolf DO [Primary Care Provider] - 1 week
[2016-09-16] MEDS ORDERED: Cyanocobalamin (B-12) 1,000 MCG/ML VIAL IM ONE (16:25)
[2016-09-16] MEDS: Isosorbide MONOnitrate (24 HR) 30 MG TAB.ER.24H PO SCH (17:28)
[2016-09-16] MEDS ORDERED: *HR* Warfarin 2 MG TABLET PO ONE (18:00)
[2016-09-16] MEDS: Lactobacillus 1 EACH CAP.SPRINK PO SCH (20:59)
[2016-09-17 05:56] LABS: Hematocrit 20.9 % (37.5-50.1); Mean Corpuscular HGB Conc 33.5 g/dL (31.6-35.5); Mean Corpuscular Hemoglobin 32.1 pg (28.0-33.3); Mean Corpuscular Volume 95.9 fL (83.0-100.0); Mean Platelet Volume 10.9 fL (9.4-12.4); Red Blood Count 2.18 M/mcL (4.19-5.50); Red Cell Distribution Width 15.8 % (11.5-14.5)
[2016-09-17 05:58] LABS: Platelet Count 90 K/mcL (140-400)
[2016-09-17 06:03] LABS: INR 3.1; Prothrombin Time 35.1 Seconds (9.4-12.1)
[2016-09-17 06:17] LABS: Calcium 7.4 mg/dL (8.6-10.8); Magnesium 1.4 mg/dL (1.6-2.6); Potassium 3.6 mEq/L (3.5-4.5)
[2016-09-17 06:30] LABS: Anisocytosis 1+ (Not Present); Lymphocytes # 0.5 K/mcL (0.6-4.6); Neutrophils # 5.5 K/mcL (1.6-8.9)
[2016-09-17 06:31] LABS: Dohle Bodies Present (Not Present); Platelet Estimate Marked Decrease (Normal); Poikilocytosis 1+ (Not Present); Toxic Granulation Present (Not Present)
[2016-09-17 06:37] LABS: Basophilic Stippling 1+ (Not Present)
[2016-09-17 06:38] LABS: Polychromasia 1+ (Not Present)
[2016-09-17 06:51] VITALS: BP 132/78
[2016-09-17] MEDS: Furosemide 40 MG TABLET PO SCH (08:28)
[2016-09-17] MEDS: Lactobacillus 1 EACH CAP.SPRINK PO SCH (08:28)
[2016-09-17] MEDS: predniSONE 20 MG TABLET PO SCH (08:29)
[2016-09-17] MEDS: Aspirin Enteric Coated 81 MG Tablet PO SCH (08:30)
[2016-09-17] MEDS: Magnesium Oxide 400 MG TABLET PO SCH (08:31)
[2016-09-17] MEDS: Isosorbide MONOnitrate (24 HR) 30 MG TAB.ER.24H PO SCH (08:31)
[2016-09-17] MEDS: Artificial Tears SOLN 15 ML BOTTLE BOTH EYES SCH (08:33)
[2016-09-17] MEDS: Insulin LISPRO 300 UNITS/3 ML VIAL SQ SCH ×2 (08:34→11:26)
[2016-09-17] MEDS: Ammonium Lactate 30 APPL/225 GM BOTTLE TP SCH (08:42)
--- NOTE | 2016-09-17 10:01 | Discharge Summary ---
Date of Encounter: 09/17/16 Time of Encounter: 09:45 - Discharge Diagnosis (1) Community acquired pneumonia Priority: Primary Status: Acute (2) Chronic atrial fibrillation Priority: Secondary Status: Chronic (3) Macrocytic anemia Priority: Secondary Status: Chronic - Discharge Medications Prescriptions: Cyanocobalamin (B-12) [Vitamin B12] 1,000 mcg PO DAILY 365 Days Levofloxacin [Levaquin] 250 mg PO DAILY 3 Days Warfarin [Coumadin] 3 mg PO 1800 365 Days Home Medications: Magnesium Oxide [Mgo] 400 mg PO BID 01/20/15 [History] Tamsulosin [Flomax] 0.4 mg PO DAILY 01/20/15 [History] Budesonide/Formoterol 160/4.5 [Symbicort 160/4.5] 2 puff IH BIDR 06/13/15 [ History] Calcitriol 0.25 mcg PO DAILY 06/13/15 [History] Sodium Bicarbonate 650 mg PO BID 06/13/15 [History] Vit A/C/E AC/Znox/Cupric Oxide [Eye Vitamin-Minerals Tablet] 1 tab PO BID [History] Carboxymethylcellulose Sodium [Refresh Tears] 1 drop BOTH EYES QID 11/13/15 [ History] Fluticasone Propionate Nasal [Flonase] 50 mcg NS DAILY 11/13/15 [History] Omeprazole [PriLOSEC] 40 mg PO DAILY PRN #30 capsule. 11/17/15 [Rx] Furosemide [Lasix] 20 mg PO DAILY 03/07/16 [History] Ammonium Lactate 140 gm TP BID 09/14/16 [History] Calcium Carbonate/Vitamin D3 [Calcium 600 + Vit D Tablet] 1 each PO BID [History] Ergocalciferol (VITAMIN D2) [Drisdol (50,000 Unit)] 50,000 unit PO QWEEK [History] Ondansetron ODT [Zofran ODT] 4 mg SL Q8HR 09/14/16 [History] Quetiapine Fumarate [Seroquel] 25 mg PO HS 09/14/16 [History] Cyanocobalamin (B-12) [Vitamin B12] 1,000 mcg PO DAILY 365 Days 09/17/16 [Rx] Lactobacillus [Culturelle] 1 each PO BID 3 Days 09/17/16 [Rx] Levofloxacin [Levaquin] 250 mg PO DAILY 3 Days 09/17/16 [Rx] Warfarin [Coumadin] 3 mg PO 1800 365 Days 09/17/16 [Rx] Allergies/Adverse Reactions: Allergies cephalexin [From Keflex] Allergy (Verified 11/12/15 12:36) Vomiting promethazine [From Phenergan] Adverse Reaction (Verified 09/14/16 07:29) See Comments Body jerking Date of admission: 09/14/16 18:44 Primary care physician: Tigre Wolf DO Consults: 09/14/16 19:19 Consult to Physical Therapy [CONS] Routine Comment: Evaluate, develop and implement POC Reason for Consult: General weakness and unsteady gait 09/14/16 19:21 Consult to Occupational Therapy [CONS] Routine Comment: Evaluate, develop and implement POC Reason for Consult: Unsteady gait general weakness 09/14/16 19:22 Consult to Machine Tailer [CONS] Routine Reason for SW Consult: Discharge planning - Patient Status Disposition: Transfer SNF Condition: Fair Functional capacity at discharge: uses cane/walker Overall status at discharge: patient is progressing back to baseline - Discharge Instructions - Diet and Activity Activity: as per physical therapy Diet: advance to your usual diet Hospital course: Mr. Boggs is a 85 year old male who came to emergency room complaining of cough, dyspnea, and wheezing for 3 days. He was felt to have community- acquired pneumonia. Is noted to [facility] for from ongoing care needs. Initial orders were written by the emergency room physician. Dr. Ennis saw him on September 14 and performed the history and physical. He was started on IV Levaquin. He had clinical improvement with resolution of the leukopenia. WBC was 6.0K on 09/17/2016 with 84% segs. He remained afebrile during his hospital stay. He will continue with antibiotic and probiotic 3 additional days at discharge. His azotemia remained stable during hospitalization with creatinine 2.97 on the day of discharge. Magnesium level was slightly low at 1.4. He will continue magnesium oxide at the senior living. Anemia testing showed B12 191. He received a B12 injection and will continue oral B12 supplementation after discharge. On September 17 arrangements were completed for him to be discharged to [facility] for rehabilitation therapy prior to returning home. - Time Spent with Patient Total time spent providing and/or coordinating discharge services: - Constitutional Vitals: Temp Pulse Resp BP Pulse Ox 97.9 F 90 18 132/78 96 09/17/16 06:50 09/17/16 06:50 09/17/16 06:50 09/17/16 06:50 09/17/16 06:50 - VTE Reasons for not Prescribing Prophylaxis: Not indicated-Anticoagulated or INR therapeutic
--- NOTE | 2016-09-17 10:16 | Physician Discharge Referral ---
ExtendedCare Referral Info Transfer To: [facility] Provider in Charge: Abhishek Provider in Charge after Transfer: PCP - Diagnosis (1) Community acquired pneumonia Priority: Primary Status: Acute (2) Chronic atrial fibrillation Priority: Secondary Status: Chronic (3) Macrocytic anemia Priority: Secondary Status: Chronic Prognosis: Fair Aware of Diagnosis: Patient, Family Aware of Prognosis: Patient, Family - Transfer Medications Prescriptions: Cyanocobalamin (B-12) [Vitamin B12] 1,000 mcg PO DAILY 365 Days Levofloxacin [Levaquin] 250 mg PO DAILY 3 Days Warfarin [Coumadin] 3 mg PO 1800 365 Days Home Medications: Magnesium Oxide [Mgo] 400 mg PO BID 01/20/15 [History] Tamsulosin [Flomax] 0.4 mg PO DAILY 01/20/15 [History] Budesonide/Formoterol 160/4.5 [Symbicort 160/4.5] 2 puff IH BIDR 06/13/15 [ History] Calcitriol 0.25 mcg PO DAILY 06/13/15 [History] Sodium Bicarbonate 650 mg PO BID 06/13/15 [History] Vit A/C/E AC/Znox/Cupric Oxide [Eye Vitamin-Minerals Tablet] 1 tab PO BID [History] Carboxymethylcellulose Sodium [Refresh Tears] 1 drop BOTH EYES QID 11/13/15 [ History] Fluticasone Propionate Nasal [Flonase] 50 mcg NS DAILY 11/13/15 [History] Omeprazole [PriLOSEC] 40 mg PO DAILY PRN #30 capsule. 11/17/15 [Rx] Furosemide [Lasix] 20 mg PO DAILY 03/07/16 [History] Ammonium Lactate 140 gm TP BID 09/14/16 [History] Calcium Carbonate/Vitamin D3 [Calcium 600 + Vit D Tablet] 1 each PO BID [History] Ergocalciferol (VITAMIN D2) [Drisdol (50,000 Unit)] 50,000 unit PO QWEEK [History] Ondansetron ODT [Zofran ODT] 4 mg SL Q8HR 09/14/16 [History] Quetiapine Fumarate [Seroquel] 25 mg PO HS 09/14/16 [History] Cyanocobalamin (B-12) [Vitamin B12] 1,000 mcg PO DAILY 365 Days 09/17/16 [Rx] Lactobacillus [Culturelle] 1 each PO BID 3 Days 09/17/16 [Rx] Levofloxacin [Levaquin] 250 mg PO DAILY 3 Days 09/17/16 [Rx] Warfarin [Coumadin] 3 mg PO 1800 365 Days 09/17/16 [Rx] Allergies/Adverse Reactions: Allergies cephalexin [From Keflex] Allergy (Verified 11/12/15 12:36) Vomiting promethazine [From Phenergan] Adverse Reaction (Verified 09/14/16 07:29) See Comments Body jerking - Respiratory Orders Smoking Cessation: Smoking cessation has been advised. For more information, call the [place] Tobacco Quit Line at 9-125-NEEV-NOW. - Lab Orders Lab Orders: Other (include drug levels w/frequency) (CBC with differential, CMP , magnesium, PT/INR in 1 week) - Rehabiliation Orders Rehab Potential: Fair Rehab Orders: Evaluation for Physical Therapy, Evaluation for Occupational Therapy - Diet Orders No Concentrated Sweets CERTIFICATION: I certify that the transfer of the above named patient to an Extended Care Facility is necessary for the continuing treatment of the diagnosis listed. The above information is true and accurate reflection of patient's current condition. Confidential - Redisclosure prohibited without a patient's written consent.
[2016-09-17] MEDS ORDERED: *HR* Warfarin 2 MG TABLET PO SCH (18:00)
[2016-09-17] MEDS ORDERED: Latanoprost 2.5 ML BOTTLE BOTH EYES SCH (21:00)
== END 2016-09-17 14:50 | DRG 190 ==
LOC: EMEROOPIK 07:26 → INPPIK 07:26
PROVIDERS: ADMIT Family Medicine; ATTEND Internal Medicine